=== PATIENT | female | born 1975 | race Caucasian/White ===

== ENCOUNTER 2020-07-31 09:28 | Emergency (ER) | payer OTHER ==
[~2020-07-31] VITALS: Ht 160 cm; Wt 137.8 kg
[2020-07-31] MEDS ORDERED: KETOROLAC 30 MG/1 ML ONE (09:59)
[2020-07-31] MEDS ORDERED: METHOCARBAMOL 750 MG TABLET ONE (09:59)
[2020-07-31] MEDS ORDERED: KETOROLAC 30 MG/1 ML IM ONE (10:00)
[2020-07-31] MEDS ORDERED: METHOCARBAMOL 750 MG TABLET PO ONE (10:00)
--- NOTE | 2020-07-31 10:26 | NUR ---
PT TO XRAY
[2020-07-31 11:22] VITALS: BP 105/59
== END 2020-07-31 12:08 ==
LOC: ED 11:57
DX: M51.36 Other intervertebral disc degeneration, lumbar region (principal); I10 Essential (primary) hypertension; V89.2XXA Person injured in unspecified motor-vehicle accident, traffic, initial encounter; Y93.89 Activity, other specified; Y92.410 Unspecified street and highway as the place of occurrence of the external cause; Y99.8 Other external cause status
CPT/HCPCS: 72110; 96374; 99283; J1885